=== PATIENT | female | born 1990 | race Caucasian/White ===

== ENCOUNTER 2021-03-06 09:39 | Emergency (ER) | payer OTHER, BC ==
[2021-03-06] MEDS ORDERED: Ketorolac Tromethamine 30 MG/ML VIAL ONE (10:40)
== END 2021-03-06 11:43 | disposition home or self-care (01) ==
LOC: CSHERS 09:39
DX: S16.1XXA Strain of muscle, fascia and tendon at neck level, initial encounter (principal); S80.02XA Contusion of left knee, initial encounter; M54.50 Low back pain, unspecified; V49.49XA Driver injured in collision with other motor vehicles in traffic accident, initial encounter
CPT/HCPCS: 96372; J1885